=== PATIENT | female | born 1960 ===

== ENCOUNTER 2025-02-24 09:54 | Day surgery (SDC) | payer BC ==
[2025-02-21 14:35] LABS: Anion Gap 8.2 mEq/L (5.0-15.0); Potassium 4.2 mEq/L (3.5-5.1)
[2025-02-21 14:41] LABS: Absolute Basophils 0.1 K/uL (0-0.5); Absolute Eosinophils 0.4 K/uL (0-0.5); Absolute Monocytes 0.4 K/uL (0.1-1.3); Absolute Neutrophil 5.5 K/uL (1.8-8.0); Basophils % 0.7 % (0-1.3); Eosinophils % 4.7 % (0-4.4); Hemoglobin 12.8 g/dL (12.0-15.0); Lymphocytes % 24.5 % (15.3-44.8); MCH 31.2 pg (27.0-35.0); MCHC 34.7 g/dL (32.0-36.0); MPV 8.8 fL (7.6-11.3); Monocytes % 4.8 % (3.3-12.3); Neutrophils % 65.3 % (41.7-73.7); Nucleated Red Blood Cells % 0.1 % (0-0); Platelets 304 thou/uL (152-406); RBC Red Blood Cell Count 4.12 M/uL (3.86-4.86); Red Cell Distribution Width 13.6 % (12.1-15.2)
[2025-02-24] MEDS: Ringers Lactate 1,000 ML IV ONE (10:55)
--- NOTE | 2025-02-24 10:56 | EKG ---
Test Date: 2025-02-21 Test Time: 13:51:16 Geomorphologist: DEREJE MEASUREMENT RESULTS: Intervals: Rate: 66 NV: 126 QRSD: 80 QT: 388 QTc: 406 [place]: P: 52 NV: 126 QRS: -22 T: 25 INTERPRETIVE STATEMENTS: Normal sinus rhythm Normal ECG No previous ECG available for comparison Electronically Signed On 02-24-25 10:50:42 CDT by Jonnie Arredondo
[2025-02-24] MEDS ORDERED: LIDOCAINE 1% MPF 30 ML VIAL ONE (11:25)
[2025-02-24] MEDS ORDERED: propofoL 200 MG/20 ML VIAL IV ONE (11:25)
[2025-02-24 14:38] VITALS: TEMP 97
[2025-02-24 14:39] VITALS: O2SAT 100
[2025-02-24 14:40] VITALS: BP 126/65
== END 2025-02-24 13:28 | disposition home or self-care (01) ==
LOC: OR 09:54
PROVIDERS: ATTEND Surgery
PROC: 0DBH8ZX Excision of Cecum, Via Natural or Artificial Opening Endoscopic, Diagnostic (ICD-10-PCS; principal; 2025-02-24 12:00)
DX: Z12.11 Encounter for screening for malignant neoplasm of colon (principal); K57.30 Diverticulosis of large intestine without perforation or abscess without bleeding; K64.8 Other hemorrhoids
CPT/HCPCS: 93005; 85025; 80048; 36415; 88305; 45380; J2704; J2003; J7120